=== PATIENT | female | born 1985 | race Caucasian/White ===

== ENCOUNTER 2016-05-27 08:28 | Emergency (ER) | payer MEDICAID ==
[~2016-05-27] VITALS: Ht 154.9 cm; Wt 67.0 kg
[~2016-05-27 08:28] MED LIST: ACET500C5 PO; ALBU8.5H3 INH; AMP500 PO; AZIT250T94 PO; CEPH-443 PO; ONDA4TAB35 PO
[2016-05-27 08:45] VITALS: Ht 154.9 cm; Wt 67.0 kg
[2016-05-27 09:30] LABS: URINE BLOOD (Dip) POC Negative (NEGATIVE)
[2016-05-27 09:43] LABS: BASOPHILS % 0.6 % (0.0-2.0); EOSINOPHILS # 0.2 10^3/ul (0.0-0.5); EOSINOPHILS % 2.7 % (0.0-7.0); HEMATOCRIT 40.3 % (37.0-47.0); HEMOGLOBIN 13.8 g/dl (12.0-16.0); LYMPHOCYTES # 1.1 10^3/ul (0.8-2.9); LYMPHOCYTES % 16.2 % (15.0-51.0); MEAN CORPUSCULAR HEMOGLOBIN 32.6 pg (29.0-33.0); MEAN CORPUSCULAR HGB CONC 34.2 g/dl (32.0-37.0); MEAN CORPUSCULAR VOLUME 95.3 fl (82.0-101.0); MEAN PLATELET VOLUME 10.7 fl (7.4-10.4); MONOCYTE # 0.4 10^3/ul (0.3-0.9); MONOCYTES % 5.5 % (0.0-11.0); NEUTROPHIL # 5.2 10^3/ul (1.6-7.5); PLATELET COUNT 173 10^3/UL (140-440); RED BLOOD COUNT 4.23 10^6/ul (4.20-5.40); RED CELL DISTRIBUTION WIDTH 12.5 % (11.5-14.5); UNCORRECTED WBC 6.9 10^3/ul (4.8-10.8); WHITE BLOOD COUNT 6.9 10^3/ul (4.8-10.8)
[2016-05-27 09:53] LABS: CONDITION 1
[2016-05-27 09:58] LABS: ALBUMIN 3.5 g/dl (3.3-4.9)
[2016-05-27 09:59] LABS: POTASSIUM 4.7 mmol/L (3.5-5.1)
[2016-05-27 10:01] LABS: BILIRUBIN,INDIRECT 0.6 mg/dl (0-1.1); BILIRUBIN,TOTAL 0.6 mg/dl (0.2-1.3); CREATININE 0.52 mg/dl (0.44-1.00)
[2016-05-27 10:02] LABS: CALCIUM 8.9 mg/dl (8.4-10.2)
[2016-05-27 10:07] LABS: INR 0.85; PROTIME 11.6 Sec (12.2-14.2); PT RATIO 0.9
[2016-05-27 10:08] VITALS: BP 121/72; PULSE 104; RESP 18; TEMP 97.6
[2016-05-27 10:08] LABS: PARTIAL THROMBOPLASTIN TIME 27.3 Sec (25.0-35.0)
[2016-05-27] MEDS ORDERED: HYDR-3012 PO (11:17)
[2016-05-27] MEDS ORDERED: SODI126M NASAL (11:17)
--- NOTE | 2016-05-27 12:44 | ERD ---
DATE OF SERVICE: HISTORY OF PRESENT ILLNESS: The patient is a 31-year-old female coming in complaining of a producti ve cough. The patient states 36 weeks . She is not taking any medication given that she is . She had a runny nose, mild sore throat, no fevers, no chest pain, no shortness of breath . She is also complaining of itchy soles and palms of her hands. She states she has had no problem s with her thus far. She has an appointment with her doctor in the next 4 days. She has had no abdominal pain, no dizziness, no headaches, no change in urination or bowel movement. The kathy johnson's ADMISSIONS CLERK is Dr. Beltran. PAST MEDICAL HISTORY: Denies medical problems. MEDICATION ALLERGIES: DENIES. SURGICAL HISTORY: Cholecystectomy. SOCIAL HISTORY: Denies. REVIEW OF SYSTEMS: A 12-point review of systems was done. Refer to HPI for positives, all other sy stems negative. PHYSICAL EXAMINATION VITAL SIGNS: Temperature is 98.6, pulse is 96, blood pressure 145/78, respiratory 18, O2 saturation 99% on room air. Pain intensity is 0/10. GENERAL: The patient is well-appearing, well-nourished, no acute distress. HEENT: Atraumatic. Conjunctivae are pink. Pupils equal, round, and reactive to light. There is no s cleral icterus. Tympanic membranes clear bilaterally. Oropharynx clear. No nystagmus or photophobia . CHEST: Clear to auscultation bilaterally. There are no rales, wheezes or rhonchi. HEART: Regular rate and rhythm. No murmurs, clicks, rubs or gallops. No S3 or S4. ABDOMEN: Soft, nontender and nondistended. Good bowel sounds. No rebound or guarding. No gross karine tonitis. No gross organomegaly or masses. No Berry sign or McBurney point tenderness. SKIN: There is no apparent rash or petechia. The skin is warm and dry. EMERGENCY ROOM COURSE: The patient had blood work taken in the ER, given she has a pruritic soles a nd palms to check liver enzymes, CBC is within normal limits. Liver enzymes are within normal limit s. The patient's coags were within normal limits. The patient's total bile acid levels were sent o il for send-out test. The patient's urine was within normal limits. DIAGNOSES 1. Upper respiratory infection. 2. Cough. 3. Pruritus. MEDICAL DECISION MAKING: The patient may have underlying cholestasis. However, her liver enzymes a re within normal limits and vital signs are stable. The patient is nontoxic appearing and blood wor k is within normal limits with normal platelets. I have low suspicion for HELLP, low suspicion for preeclampsia or complications associated with . The patient will be given medication for h er puritic sensation and told to follow up with her ADMISSIONS CLERK. I have low suspicion for pneumonia as p atient's breath sounds are within normal limits. Vital signs are stable. I did not feel there was an indication for antibiotics. DISCHARGE: The patient is discharged stable. The patient given prescription for saline nasal mist and hydroxyzine and told to follow up with primary care within 1 to 2 days for reevaluation. The kathy johnson was told if symptoms progress or worsen to return to the ER. All other questions answered at time of discharge. Discharge summary given at the time of departure. Patient understood and compli ed with plan. Dictated By: NIC KRISHNAMURTHY DO EH/NTS Conf#: [id number] DID#: [id number]
== END 2016-05-27 11:26 | disposition home or self-care (01) ==
LOC: FTE 08:28
DX: O99.513 Diseases of the respiratory system complicating pregnancy, third trimester (principal); J06.9 Acute upper respiratory infection, unspecified; R05 Cough; L29.9 Pruritus, unspecified; O99.713 Diseases of the skin and subcutaneous tissue complicating pregnancy, third trimester; Z3A.36 36 weeks gestation of pregnancy
CPT/HCPCS: 80053; 81003; 83789; 85025; 85610; 85730; Z7502; 99283

== ENCOUNTER 2016-05-30 15:35 | Inpatient (IN) | payer MEDICAID ==
[~2016-05-30] VITALS: Ht 154.9 cm; Wt 67.0 kg
[~2016-05-30 15:35] MED LIST changes: +HYDR-3012 PO; +SODI126M NASAL
[2016-05-30 16:01] VITALS: Ht 154.9 cm; Wt 67.0 kg
[2016-05-30 16:02] VITALS: BP 119/78; PULSE 95; RESP 20
[2016-05-30] MEDS ORDERED: PREN1TAB79 PO (16:05)
[2016-05-30] MEDS ORDERED: OXYTOCIN 30 UNITS/LR 500 ML IV SCH ×3 (16:30→19:00)
[2016-05-30] MEDS ORDERED: METHYLERGONOVINE 0.2 MG INJ IM PRN (16:30)
[2016-05-30] MEDS ORDERED: IBUPROFEN 600 MG TAB PO PRN (16:30)
[2016-05-30] MEDS ORDERED: OXYTOCIN 30 UNITS/LR 500 ML IV PRN (16:30)
[2016-05-30] MEDS ORDERED: LIDOCAINE 1% (MPF) 30 ML INJ INJ PRN (16:30)
[2016-05-30] MEDS ORDERED: MISOPROSTOL 200 MCG TAB PR PRN (16:30)
[2016-05-30] MEDS ORDERED: CARBOPROST 250 MCG INJ IM PRN (16:30)
[2016-05-30] MEDS ORDERED: BUTORPHANOL 2 MG INJ IV PRN (16:30)
[2016-05-30] MEDS: LACTATED RINGER'S 1,000 ML IV SCH ×2 (16:34→20:38)
[2016-05-30 16:48] LABS: BASOPHILS % 0.3 % (0.0-2.0); EOSINOPHILS # 0.1 10^3/ul (0.0-0.5); EOSINOPHILS % 0.5 % (0.0-7.0); HEMATOCRIT 39.1 % (37.0-47.0); HEMOGLOBIN 13.4 g/dl (12.0-16.0); LYMPHOCYTES # 1.9 10^3/ul (0.8-2.9); LYMPHOCYTES % 17.4 % (15.0-51.0); MEAN CORPUSCULAR HEMOGLOBIN 32.1 pg (29.0-33.0); MEAN CORPUSCULAR HGB CONC 34.3 g/dl (32.0-37.0); MEAN CORPUSCULAR VOLUME 93.6 fl (82.0-101.0); MEAN PLATELET VOLUME 10.5 fl (7.4-10.4); MONOCYTE # 0.6 10^3/ul (0.3-0.9); MONOCYTES % 5.8 % (0.0-11.0); NEUTROPHIL # 8.2 10^3/ul (1.6-7.5); PLATELET COUNT 198 10^3/UL (140-440); RED BLOOD COUNT 4.18 10^6/ul (4.20-5.40); RED CELL DISTRIBUTION WIDTH 12.5 % (11.5-14.5); UNCORRECTED WBC 10.8 10^3/ul (4.8-10.8); WHITE BLOOD COUNT 10.8 10^3/ul (4.8-10.8)
[2016-05-30 16:50] LABS: CONDITION 1
[2016-05-30 16:54] LABS: INR 0.91; PROTIME 12.2 Sec (12.2-14.2)
[2016-05-30 16:55] LABS: PARTIAL THROMBOPLASTIN TIME 29.7 Sec (25.0-35.0)
[2016-05-30] MEDS ORDERED: LACTATED RINGER'S 1,000 ML IV PRN (17:00)
--- NOTE | 2016-05-30 17:24 | RADRPT ---
PROCEDURE: US OB. CLINICAL INDICATION: labor. TECHNIQUE: Multiple sonographic images of the pelvis were obtained. Transabdominal imaging only w as performed. The images were reviewed on a PACS workstation. COMPARISON: Pelvic ultrasound dated 11/19/2015. FINDINGS: There is a single viable intrauterine gestation. Cardiac activity is present with a heart rate of 1 29 bpm. There is a cephalic presentation. Measurements were made in order to determine age. The results are as follows: BPD = 8.78 cm HC = 31.54 cm AC = 35.05 cm FL = 7.13 cm Estimated gestational age of approximately 36 weeks 4 days. The estimated date of delivery is 06/23/2016. The EFW = 3245 g, at the 79.6 percentile. The placenta is anterior, grade II. There is no evidence for an abruption or placenta previa. IMPRESSION: 1. Single viable intrauterine gestation of approximately 36 weeks 4 days. 2. The estimated date of delivery is 06/23/2016. RPTAT: HLBP .Jacobo Scott MD, MD Date Time Electronically viewed and signed by .Jacobo Scott MD, MD on 05/30/2016 17:24 .P/
[2016-05-30] MEDS ORDERED: LACTATED RINGER'S 1,000 ML IV ONE (19:41)
[2016-05-30 19:50] VITALS: BP 111/68; PULSE 70; RESP 18
[2016-05-30] MEDS ORDERED: HYDROmorphONE 1 MG/ML SYG IV PRN ×2 (20:00)
[2016-05-30] MEDS ORDERED: NALOXONE (0.4 MG/ML) INJ IV PRN (20:00)
[2016-05-30] MEDS ORDERED: DIPHENHYDRAMINE 50 MG INJ IV PRN (20:00)
[2016-05-30] MEDS ORDERED: ONDANSETRON 4 MG INJ IV PRN (20:00)
[2016-05-30] MEDS ORDERED: PROCHLORPERAZINE 10 MG INJ IV PRN (20:00)
[2016-05-30] MEDS ORDERED: CITRIC ACID/NA CITRATE 30 ML CUP PO ONE (20:00)
[2016-05-30] MEDS ORDERED: ONDANSETRON 4 MG INJ IV ONE (20:00)
[2016-05-30] MEDS ORDERED: KETOROLAC 30 MG INJ IV PRN (20:00)
[2016-05-30] MEDS ORDERED: FENTAnyl 2MCG/ML-ROPIV 0.2% 100 ML BAG EPI SCH ×2 (20:00)
--- NOTE | 2016-05-30 22:37 | DELSUM ---
Delivery Summary A-C Datetime Report Generated by CPN: 05/30/2016 22:37 DELIVERY PERSONNEL [employer] Installer: Long, Jossie MATERNAL INFORMATION Delivery Anesthesia: None Medications in Delivery: oxytocin 30units/500ml LR Estimated Blood Loss (ml): 200 Placenta Cultured: No Maternal Complications: None RN Comments: RT/RN team called rt at 36.4 weeks, thick meconium and distress per Dr. Beltran, use of kiwi vaccum assist r/t distress- 3 attempts; no pop offs LABOR SUMMARY EDC: 06/23/2016 00:00 No. Babies in Womb: 0 Attempted: No Labor Anesthesia: None LABOR INFORMATION Reason for Induction: Not Applicable Onset of Labor: 05/29/2016 18:00 Complete Dilatation: 05/30/2016 21:22 Oxytocin: Augmentation Group B Beta Strep: Negative Antibiotics # of Doses: 0 Antibiotics Time of Last Dose: 0 Steroids Given: None Reason Steroids Not Administered: Not Applicable MEMBRANES Membranes Rupture Method: Artificial Rupture of Membranes: 05/30/2016 18:28 Length of Rupture (hr): 2.35 Amniotic Fluid Color: Heavy Meconium Amniotic Fluid Amount: Moderate Amniotic Fluid Odor: None STAGES OF LABOR Stage 1 hr: 27 Stage 1 min: 22 Stage 2 hr: 0 Stage 2 min: -33 Stage 3 hr: 0 Stage 3 min: 56 Total Time in Labor hr: 27 Total Time in Labor min: 45 VAGINAL DELIVERY Episiotomy: Median Laceration Extension: First Degree Laceration Type: Perineal Laceration Repair: Yes Initial Vag Sponge Count: 20 Final Vag Sponge Count: 20 Initial Vag Sharps Count: 2 Final Vag Sharps Count: 2 Sponge Count Correct: Yes Sharps Count Correct: Yes BABY A INFORMATION Delivery Date/Time: 05/30/2016 20:49 Method of Delivery: Vaginal Born in Route : No : N/A Forceps: N/A Vacuum Extraction: N/A Shoulder Dystocia : N/A SHOULDER DYSTOCIA BABY A Infant Delivery Date/Time: 05/30/2016 20:49 PRESENTATION/POSITION BABY A Presentation: Cephalic Presentation: Cephalic Cephalic Presentation: Vertex Vertex Position: Left Occipital Posterior Breech Presentation: N/A PLACENTA INFORMATION BABY A Placenta Delivery Time : 05/30/2016 21:45 Placenta Method of Delivery: Spontaneous Placenta Status: Delivered SCORES BABY A Heart Rate 1 min: >100 bpm Resp Effort 1 min: Good Cry Reflex Irritability 1 min: Cough/Sneeze/Pulls Away Muscle Tone 1 min: Active Motion Color 1 min: Blue/Pale Resuscitation Effort 1 min: Tactile Stimulation SCORE 1 MIN: 8 Heart Rate 5 min: >100 bpm Resp Effort 5 min: Good Cry Reflex Irritability 5 min: Cough/Sneeze/Pulls Away Muscle Tone 5 min: Active Motion Color 5 min: Blue/Pale Resuscitation Effort 5 min: Tactile Stimulation SCORE 5 MIN: 8 INFANT INFORMATION BABY A Gestational Age at Delivery: 36.4 Gestational Status: Late - 34- 36.6 Weeks Outcome : Liveborn Condition : Stable Sex: Male IDENTIFICATION/MEDS BABY A ID Band Number: [id number] ID Band Location: Right Leg; Left Arm Sensor Applied: Yes Sensor Number: [id number] Sensor Location : Cord Clamp Vitamin K Given : Not Given Erythromycin Given: Not Given WEIGHT/LENGTH BABY A Infant Birthweight (gm): 2945 Weight (lb): 6 Weight (oz): 8 Infant Length (in): 19.00 Infant Length (cm): 48.26 CORD INFORMATION BABY A No. Cord Vessels: 3 Nuchal Cord : Around Neck x1, Tight Cord Blood Taken: Yes Suction: None ASSESSMENT BABY A Complications: None Physical Findings at Delivery: Within Normal Limits Physical Findings- Other: findings all normal per RN/RT Respirations: Appears Normal Wire Drawer/ALS Called : Yes Care By: ZORAIDA BOUDREAUX Transferred To: Remains with Mother
--- NOTE | 2016-05-30 22:44 | HP ---
Date/Time of Note Date/Time of Note DATE: 05/30/16 TIME: 22:43 OB - History Hx of Present Free Text/Dictation @36+wks GA in labor : 2 Para: 1 Care: Good Care Ultrasounds: Normal mid trimester US Obstetrical Complications: None Past Family/Social History * Past Medical, Surgical, Family and Obstetric Histories reviewed from chart. OB Admission Exam Vital Signs Vital Signs Vital Signs Date Time Temp Pulse Resp B/P Pulse Ox O2 Delivery O2 Flow Rate FiO2 05/30/16 16:02 98.0 95 20 119/78 97 Room Air Physical Exam Abdomen: WNL Extremities: Normal Cervical Dilatation: 2cm Effacement: 75% Station: -1 Membranes: Intact Heart Rate: 140's Accelerations: Accelerations Present Decelerations: No Decelerations Contractions on Admission: < 5 Minutes Apart Last 72 hours Lab Results CBC & BMP 05/30/16 16:20 OB Assessment/Plan Reason for admission: observation FAUSTO HERMAN M.D. May 30, 2016 22:44
--- NOTE | 2016-05-30 22:46 | LDN ---
Date/Time of Note Date/Time of Note DATE: 05/30/16 TIME: 22:44 Delivery Summary Assisted Vaginal Delivery: Vacuum (3 attempts distress) Meconium: Thick Perineum intact?: Yes Anesthesia type: Epidural Sponge & Needle done & correct: Yes All needle counts correct: Yes Any foreign bodies felt in the: No Problems: Infant Delivery Information Sex Sex: male Apgars 1 Minute: 8 5 Minute: 9 Suctioning Nose & mouth suctioned at karine: Yes Delee suction performed: Yes Umbilical Cord Umbilical cord with: 3 Vessels Cord presentations: nuchal cord Nuchal cord present X: 1 Cord Blood was obtained: Yes Mother & Baby Disposition Disposition Mom & Baby to Maternity; Good: Yes Baby to NICU: No FAUSTO HERMAN M.D. May 30, 2016 22:46
[2016-05-31] VITALS (7 sets, daily range): BP systolic 101–119; BP diastolic 58–81; PULSE 60–89; RESP 17–19
[2016-05-31] MEDS ORDERED: METHYLERGONOVINE 0.2 MG INJ IM PRN
[2016-05-31] MEDS ORDERED: OXYCODONE/ASPIRIN (4.88/325) TAB PO PRN
[2016-05-31] MEDS ORDERED: ZOLPIDEM 5 MG TAB PO PRN
[2016-05-31] MEDS ORDERED: SENNA/DOCUSATE NA (8.6MG/50MG) TAB PO PRN
[2016-05-31] MEDS ORDERED: BENZOCAINE 20% 56 ML SPRAY TOP PRN
[2016-05-31] MEDS ORDERED: MISOPROSTOL 200 MCG TAB PR PRN
[2016-05-31] MEDS ORDERED: CARBOPROST 250 MCG INJ IM PRN
[2016-05-31] MEDS ORDERED: OXYTOCIN 30 UNITS/LR 500 ML IV PRN
[2016-05-31] MEDS ORDERED: LANOLIN 7 GM TUBE TOP PRN
[2016-05-31] MEDS ORDERED: WITCH HAZEL/GLYCERIN PAD PR PRN
[2016-05-31] MEDS: LACTATED RINGER'S 1,000 ML IV* SCH ×3 (02:28→11:04)
[2016-05-31] MEDS: IBUPROFEN 600 MG TAB PO SCH ×5 (05:36→23:21)
[2016-05-31 07:49] LABS: EOSINOPHILS % 0.2 % (0.0-7.0); HEMATOCRIT 36.2 % (37.0-47.0); HEMOGLOBIN 12.5 g/dl (12.0-16.0); LYMPHOCYTES # 1.6 10^3/ul (0.8-2.9); LYMPHOCYTES % 13.6 % (15.0-51.0); MEAN CORPUSCULAR HEMOGLOBIN 32.4 pg (29.0-33.0); MEAN CORPUSCULAR HGB CONC 34.6 g/dl (32.0-37.0); MEAN CORPUSCULAR VOLUME 93.5 fl (82.0-101.0); MEAN PLATELET VOLUME 11.4 fl (7.4-10.4); MONOCYTE # 0.7 10^3/ul (0.3-0.9); MONOCYTES % 6.5 % (0.0-11.0); NEUTROPHIL # 9.1 10^3/ul (1.6-7.5); NEUTROPHILS % 79.7 % (39.0-77.0); PLATELET COUNT 152 10^3/UL (140-440); RED BLOOD COUNT 3.87 10^6/ul (4.20-5.40); RED CELL DISTRIBUTION WIDTH 12.6 % (11.5-14.5); UNCORRECTED WBC 11.4 10^3/ul (4.8-10.8); WHITE BLOOD COUNT 11.4 10^3/ul (4.8-10.8)
[2016-05-31 07:53] LABS: CONDITION 1
[2016-05-31] MEDS: SENNA/DOCUSATE NA (8.6MG/50MG) TAB PO SCH ×2 (10:06→21:33)
[2016-05-31] MEDS ORDERED: GUAIFENESIN 20 MG/ML 5ML CUP PO PRN (23:30)
[2016-06-01 04:30] VITALS: BP 103/58; PULSE 72; RESP 18
[2016-06-01] MEDS: IBUPROFEN 600 MG TAB PO SCH ×3 (05:33→18:01)
[2016-06-01 08:10] VITALS: BP 109/70; PULSE 73; RESP 19
[2016-06-01] MEDS ORDERED: DIPHTH/TET/ACEL PERTUSS (ADULT) 0.5 ML VIAL IM* ONE (09:00)
[2016-06-01] MEDS: SENNA/DOCUSATE NA (8.6MG/50MG) TAB PO SCH (09:43)
--- NOTE | 2016-06-01 10:38 | PN ---
Date/Time of Note Date/Time of Note DATE: 06/01/16 TIME: 10:37 OB Subjective Subjective Subjective PPD#2 is stable afebrile tolerates diet No VB +BM +voids VS stable Gen NAD Abd soft NT ND Genitalia No blood at perinium --->Discharge home FAUSTO HERMAN M.D. Jun 01, 2016 10:38
[2016-06-01 16:51] VITALS: BP 98/65; PULSE 72; RESP 20
== END 2016-06-01 19:12 | disposition home or self-care (01) | DRG 775 ==
LOC: OBT 15:35 → L-D 15:37 → OBT 16:00 → L-D 16:00 → PP1 05-31 00:24
PROVIDERS: ADMIT Obstetrics & Gynecology; ATTEND Obstetrics & Gynecology
PROC: 10D07Z6 Extraction of Products of Conception, Vacuum, Via Natural or Artificial Opening (ICD-10-PCS; principal; 2016-05-30)
DX: O60.14X0 Preterm labor third trimester with preterm delivery third trimester, not applicable or unspecified (principal); O77.0 Labor and delivery complicated by meconium in amniotic fluid; O70.0 First degree perineal laceration during delivery; Z3A.36 36 weeks gestation of pregnancy; Z37.0 Single live birth; O69.1XX0 Labor and delivery complicated by cord around neck, with compression, not applicable or unspecified
CPT/HCPCS: 62319; 76815; 85025; 85610; 85730; 86592; 86900; 86901; 90715; 99464; G0463; J2405; J3010; J7120